=== PATIENT | female | born 1995 | race Caucasian/White ===

== ENCOUNTER 2017-07-12 08:54 | Day surgery (SDC) | payer OTHER ==
--- NOTE | 2017-07-08 08:40 | PDGENHP ---
History and Physical - Chief Complaint LEFT SCOPE - History of Present Illness 1. 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 Bilateral Femoroacetabular impingement (RICCO) Cam type, HISTORY OF PRESENT ILLNESS: Codyis a 21 y.o.~~~active female~who I have had the pleasure to consult on today.~I have enjoyed meeting her. She~lives in [place]. 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 ~She~is single; she~has no children. ~ Codyenjoys dancing and wants to be a professional dancer. Addis's bilateral~hip pain started in 2011, with no~recalled trauma or injury, and with no~previous complaints.~Codydoes not have~a known history of hip dysplasia. Presentation today is of~anterior, groin bilateral~hip pain(L>R). ~The hip does not~wake her~at night and does~click and catch on her. Sitting can be uncomfortable for her. Codydoes~report suffering from lower back pain episodes. Codyhas~participated in physical therapy and has~tried other conservative measures including massage therapy. She~has not~received sufficient symptomatic improvement. Codyhas not~utilized medication for pain management, including NSAID and OTC acetaminophen. Codyhas used medication for 3-4 years. Codyunderstands that she~has a hip and pelvis problem which should be researched and wishes to get a better understanding of her~hip status, followed by an establishment of a treatment strategy, hoping she~would be able to get back to her~well being active life. History: Past medical history: ~ None which is relevant Relevant familial history: None which is relevant Past surgical history: [place] tooth removal Codydenies problematic issues with general anesthesia in the past. I have reviewed, verified and agree with the past medical, surgical, family and social history. Current Medications:Jacklyncurrently has no medications in their medication list. ALLERGIES:Jacklynhas no allergies on file. Objective: Physical Examination: Codyis 5 feet 4~inches tall and weighs~113~Lbs. Codyis AAO x3; she~ is well-nourished, in NAD. Skin is warm and dry. ~Breathing is non-labored. ~CV with RRR by pulse. Abdomen is soft, NTND. Currently, she~walks with a normal~gait. Trendelenburg sign is negative and proprioception~is normal, both~sides. She~presents~with moderate~signs of joint laxity.~Beightons Score: 5 She~is fit looking. ~~ Lower spine examination is negative~for sciatic or femoral nerve irritation with negative~SLR &~femoral stretch tests. Range of motion of the spine is normal~for flexion, extension, and rotations, with no~associated pain. Strength, Sensation and pulses are normal - bilaterally Ankles and knees exams are normal~and no~mal-alignment is evident. She~has~0.5cm right short ~leg length discrepancy. Thigh circumference is symmetric with no evidence for muscle atrophy on both~ sides. Hip ROM (degrees): FL ER At 90~hip FL IR At 90~hip FL AB AD EX IR Neutral hip ER Neutral hip R 110 50 25 45 10 10 50 40 L 110 55 20 50 5 10 50 30 Specific hip and pelvis tests: Quadrant DANIA Roll Add. Longus R +++ +++ Negative + L +++ +++ Negative + Glut. Med ITB Pos. Imp R Negative 5/5 strength Negative 5/5 strength Negative L Negative 5/5 strength Negative 5/5 strength Negative Squeeze test measured normal Bony Symphysis pubis is pain free to touch while concentric activity of the rectus abdominis, does not~produce pain at its insertion. Ilio Psos specific tests are positive for pain during cycling for both hips~and remarkable for painful snap. HF has no pain on ~both hips. Anterior capsule tenderness on both sides. Greater trochanteric burse is pain free on both hips. Piriformis tests: FAIR is negative, with no local signs of neuritis related to sciatic nerve. SIJs examination is normal with normal~DANIA in relation and local tenderness. Hamstrings tests are negative~functional contraction and negative~tendinopathy both hips. On a daily basis, the following percentages reflect Addis's overall total pain: Deep hip: 100% Imaging: Radiology studies which I~have personally reviewed, analyzed and measured are below: XR: AP of the hip and pelvis: Performed in a good~technique Coccyx to pubic symphysis distance 2.5 cm. 0 degree upright. [place]~Lines are preserved. No Pathological signs are seen in the Symphysis Pubis. Minimal Pathological signs are seen at the Ischial~tuberosity. ~ Specific measurements show: NSA~ LCE Sourcil~Angle Sharp's angle Lat. Cam Lat. Pincer C.Over~sign Head~Coverage % ATDmm R N 19 12 45 + - 12-1 68 N L N 19 11 46 + - 12-1 68 N Pos. wall sign ISS NAD ~~Dysplasia Comments R Negative Negative 19.2 mm +++ L Negative Negative 16.2 mm +++ Sclerosis Sup. Lat. OA Cysts Joint Space-WBZ Joint Space-Medial R Negative Negative Negative 3.9 mm 3.3 mm L Negative Negative Negative 4 mm 3.2 mm X Table lateral: Anterior cam lesion is seen~on both hips. Alpha Angle: ~ Right 74 dergrees Left 68 degrees Impression and plan:~ Addis~is a 21 y.o.~active female~suffering from symptomatic bilateral hip pain due to Bilateral Hip Dyplasia with resultant labral tear (L >~R) and Bilateral Femoroacetabular impingement (RICCO) Cam type, causing significant disability to her~and altering~her~sport and life activities. Physical examination, imaging, and her~story correspond with the diagnosis mentioned above. I explained that hip dysplasia is a condition wherein the hip joint has excessive play~and instability due to a variety of factors, including the depth and adequacy of the socket, the orientation of the femur bone, and ligament laxity around the hip joint. Dysplasia ranges in severity from borderline to crow, with treatment options being specific to the specific nature of the problem. Left untreated, the instability in the hip joint can cause progressive tearing of the labrum and deterioration of the surface cartilage, ultimately resulting in progressive osteoarthritis of the hip. I explained that femoroacetabular impingement (RICCO - Cam type) arises due to a bony or soft tissue conflict between the femur (ball) and acetabulum (socket) caused by an abnormality in the shape of the femoral head and neck. Over time, repetitive impingement can result in damage to the labrum and adjacent surface cartilage within the socket, ultimately giving rise to progressive osteoarthritis of the hip. I explained that although a labral tear can be a source of pain, it is rarely the root of the problem and typically occurs secondary to an underlying abnormality in the shape and mechanics of the hip joint. I reviewed conservative treatment options for Dysplasia and RICCO including activity modification to avoid positions of impingement or instability, physical therapy, non-steroidal anti-inflammatory medications, and various injections (corticosteroid and PRP) aimed at reducing inflammation in the hip joint or/and preventing dynamic instability and impingement. PRP injections may promote healing and reduce symptoms in certain cases but it will not repair chronically damaged tissue. Although these measures may help to buy time~and reduce current level of symptoms, they are not a definitive solution to the problem given the underlying abnormality in the shape of the hip joint. Patients who have failed conservative management and continue to experience symptoms are candidates for definitive surgical treatment, which may consist of hip arthroscopy alone or in combination with more invasive bony realignment procedures of the hip socket and/or femur called periacetabular osteotomy (KEYON) or derotational femoral osteotomy (DFO). Hip arthroscopy typically includes treating the labrum with either repair or reconstruction of the torn labrum; as well as addressing the underlying abnormalities by restoring the normal shape to the hip joint. If the cartilage is damaged a Microfracture surgical procedure may also be necessary to help stimulate the growth of fibrocartilage. If a patient requires a labral reconstruction or a Microfracture, the initial rehabilitation from the surgery may take longer, but the intermediate project manager results are typically favorable. I reviewed the technical aspects of hip arthroscopy including risks, benefits, and expected course of recovery. Addis~understands that hip arthroscopy is a minimally invasive outpatient procedure carried out through small incisions on the outer aspect of the hip joint. During surgery, the labral tear will be identified and either repaired or reconstructed~using bone anchors and suture material. Additionally, any excessive bone will be removed with a high-speed paolo to reshape the hip joint and restore normal anatomy. Risks include infection, bleeding, injury to nearby nerves or vessels, stiffness, persistent pain, instability, venous thromboembolic disease, and traction related complications including temporary foot numbness. Rarely, revision surgery may be required to address these problems. Overall recovery takes approximately 4~~ 8~months depending on the extent of damage and degree of repair. In the event that the labral tissue quality is inadequate for successful repair and healing, Addis~understands that a labral reconstruction will be performed. This procedure entails placing a cadaver tissue graft within the hip joint and stabilizing it with bone anchors to build a new labrum. The overall recovery time for labral reconstruction is similar to that of labral repair, although the surgical procedure takes longer to perform. I reviewed the technical aspects of periacetabular osteotomy (KEYON) including risks, benefits, and expected course of recovery. Codyunderstands that KEYON is an inpatient procedure carried out through two medium sized incisions on the front and back of the hip joint. The hip socket is cut, realigned, and stabilized with 2 ~3 internal screws. Risks include infection, bleeding, injury to nearby nerves or vessels, stiffness, persistent pain, instability, failure of bony healing, implant related complications, and venous thromboembolic disease. Rarely, revision surgery may be required to address these problems. Risks, potential complications, side effects and recovery from surgical procedure were discussed in length. We explained how this surgery is an open procedure, and though patients tend to do well in the long-term, it involves significant pain in the first 2-4 weeks post-op and a rather lengthy rehab.~Overall recovery takes approximately 6 ~12~months depending on the extent of damage and degree of repair. Codyunderstands that she~will undergo hip arthroscopy 1 week prior to the KEYON to address damage inside the hip joint. Codyunderstands that hip arthroscopy and KEYON are two separate procedures that are best performed one week apart, with the arthroscopy commencing first to "tighten up" any pathology evident in the hip joint (labral repair, etc.) and the KEYON open procedure occurring 7-10 days later to realign the acetabulum. Codywill review the info presented. In order to obtain more detailed information regarding the alignment, orientation, and shape of the bony hip and pelvis I will order a CT scan to be performed. The results of the CT scan, including femoral torsion and acetabular version measured values and 3D images, will aid me in deciding on the best treatment strategy and surgical pre-planning. She has had MRI in the past and she is going to bring them to us. Codyis going to contact us after completing her~imaging studies. Codyis happy with this plan. I have also supplied her~with handouts, outlining the expected surgical treatment and rehab involved. I wish~Addis~all the best, ~~ Laureen Fisher MD History Information - Allergies/Home Medication List Allergies/Adverse Reactions: resveratrol [grapes] Allergy (Verified 06/10/17 14:27) ORAL ITCHING Home Medications: Birthcontrol DAILY 06/10/17 [Last Taken Unknown] Herbal Drugs 06/10/17 [Last Taken Unknown] Prozac 40 mg HS 06/10/17 [Last Taken Unknown] I have personally reviewed and updated: medical history - Social History Smoking Status: Never smoked
[2017-07-12] MEDS ORDERED: LR 1,000 ML IV ONE (09:21)
[2017-07-12] MEDS ORDERED: BUPIVACAINE/EPI 0.25% 30 ML SDV ONE (10:15)
[2017-07-12] MEDS ORDERED: ACETAMINOPHEN 500 MG TAB PO ONE (12:01)
[2017-07-12] MEDS ORDERED: PREGABALIN 150 MG CAP PO ONE (12:01)
[2017-07-12] MEDS ORDERED: ceFAZolin 2 GM/DEXTROSE 100 ML IV ONE (12:01)
[2017-07-12] MEDS ORDERED: ACETAMINOPHEN 500 MG TAB ONE (12:10)
[2017-07-12] MEDS ORDERED: MIDAZOLAM 2 MG/2 ML VIAL IVP ONE (12:25)
[2017-07-12] MEDS ORDERED: SCOPOLAMINE HYDROBROMIDE 1.5 MG PATCH TD ONE (12:25)
--- NOTE | 2017-07-12 12:27 | PDANEPAE ---
ANE History of Present Illness Patient presents for surgery ANE Past Medical History - Cardiovascular History Hx Hypertension: No Hx Arrhythmias: No Hx Chest Pain: No Hx Coronary Artery / Peripheral Vascular Disease: No Hx CHF / Valvular Disease: No Hx Palpitations: No - Pulmonary History Hx COPD: No Hx Asthma/Reactive Airway Disease: No Hx Recent Upper Respiratory Infection: No Hx Oxygen in Use at Home: No Hx Sleep Apnea: No Sleep Apnea Screening Result - Last Documented: Negative - Neurologic History Hx Cerebrovascular Accident: No Hx Seizures: No Hx Dementia: No - Endocrine History Hx Diabetes: No - Renal History Hx Renal Disorders: No - Liver History Hx Hepatic Disorders: No - Neurological & Psychiatric Hx Hx Neurological and Psychiatric Disorders: No - Cancer History Hx Cancer: No - Congenital Disorder History Hx Congenital Disorders: No - GI History Hx Gastrointestinal Disorders: No - Other Health History Other Health History: ACNE. SENSITIVE TO MEDICATIONS - Chronic Pain History Chronic Pain: Yes (LT HIP) - Surgical History Prior Surgeries: LT HIP SCOPE 07/12/2017. TONSILLECTOMY ANE Review of Systems - Exercise capacity Exercise capacity: >=4 METS METS (RN): 4 METS ANE Patient History - Allergies Allergies/Adverse Reactions: adhesive Allergy (Mild, Verified 07/12/17 10:25) Rash resveratrol [grapes] Allergy (Verified 06/10/17 14:27) ORAL ITCHING - Home Medications Home medications: home medication list seen and reviewed Home Medications: Birthcontrol DAILY 06/10/17 [Last Taken 07/07/17] Herbal Drugs 06/10/17 [Last Taken 07/11/17] Prozac 40 mg HS 06/10/17 [Last Taken 07/11/17] VITAMIN D 07/12/17 [Last Taken 07/11/17] - NPO status NPO Status: no food or drink >8 hours NPO Since - Liquids (Date): 07/11/17 NPO Since - Liquids (Time): 23:30 NPO Since - Solids (Date): 07/11/17 NPO Since - Solids (Time): 21:00 - Anes Hx Anes Hx: no prior problems - Smoking Hx Smoking Status: Never smoked ANE Labs/Vital Signs - Vital Signs Vital Signs: reviewed preoperatively; see RN documention for details Blood Pressure: 103/63 Heart Rate: 63 Respiratory Rate: 13 O2 Sat (%): 97 Height: 162.56 cm Weight: 52.163 kg ANE Physical Exam - Airway Neck exam: FROM Mallampati Score: Class 1 Mouth exam: normal dental/mouth exam - Pulmonary Pulmonary: no respiratory distress - Cardiovascular Cardiovascular: regular rate and rhythym - ASA Status ASA Status: I ANE Anesthesia Plan Anesthesia Plan: general endotracheal anesthesia (RBA discussed)
[2017-07-12] MEDS ORDERED: PROPOFOL 200 MG/20 ML VIAL ONE (12:29)
[2017-07-12] MEDS ORDERED: fentaNYL 100 MCG/2 ML INJ ONE ×3 (12:29→16:13)
[2017-07-12] MEDS ORDERED: PROPOFOL/EMULSION 500 MG/50 ML BOTTLE IV ONE (12:29)
[2017-07-12] MEDS ORDERED: ROCURONIUM 50 MG/5 ML VIAL ONE ×2 (12:30→14:14)
[2017-07-12] MEDS ORDERED: LIDOCAINE 2% 5 ML SDV ONE (12:30)
[2017-07-12] MEDS ORDERED: DEXAMETHASONE 4 MG/ML VIAL ONE (12:30)
[2017-07-12] MEDS ORDERED: SUGAMMADEX SODIUM 200 MG/2 ML VIAL IVP ONE (14:39)
[2017-07-12] MEDS ORDERED: ONDANSETRON 4 MG/2 ML VIAL ONE (14:39)
[2017-07-12] MEDS ORDERED: ONDANSETRON 4 MG/2 ML VIAL IVP PRN (14:49)
[2017-07-12] MEDS ORDERED: OXYCODONE/APAP 5/325 TAB PO PRN (14:49)
[2017-07-12] MEDS ORDERED: HYDROCODONE/APAP 5/325 TAB PO PRN (14:49)
[2017-07-12] MEDS ORDERED: LR 500 ML IV PRN (14:49)
[2017-07-12] MEDS ORDERED: NALOXONE HCL 0.4 MG/ML INJ IVP PRN (14:49)
[2017-07-12] MEDS ORDERED: HYDROmorphONE/DILAUDID 1 MG/ML SYR IVP PRN (14:49)
[2017-07-12] MEDS ORDERED: PHENYLEPHRINE HCL 100 MCG/ML SYR ONE (15:27)
[2017-07-12] MEDS ORDERED: GLYCOPYRROLATE 0.2 MG/1 ML VIAL ONE ×3 (15:28→15:29)
[2017-07-12] MEDS ORDERED: KETOROLAC 30 MG/1 ML SDV ONE (15:36)
[2017-07-12] MEDS: fentaNYL 100 MCG/2 ML INJ IVP PRN ×3 (16:14→16:58)
[2017-07-12 17:29] VITALS: TEMP 98.4
[2017-07-12] MEDS ORDERED: OXYCODONE/APAP 5/325 TAB ONE (17:30)
[2017-07-12 18:38] VITALS: BP 100/60; PULSE 78; RESP 14; O2SAT 95
--- NOTE | 2017-07-12 22:00 | POSTANESTH ---
Post Anesthetic Evaluation Cardiovascular Status: Normal, Stable Respiratory Status: Normal, Stable Level of Consciousness/Mental Status: Can Participate in Eval Pain Control: Adequate, Prn Tx Ordered, Inadeq, Add Tx Required Nausea/Vomiting Control: Adequate, Prn Tx Ordered Complications Possibly Related to Anesthesia: None Noted
== END 2017-07-12 18:50 | disposition home or self-care (01) ==
LOC: FSGY 08:54
PROVIDERS: ATTEND Orthopaedic Surgery Sports Medicine
PROC: 0SQ94ZZ Repair Right Hip Joint, Percutaneous Endoscopic Approach (ICD-10-PCS; principal; 2017-07-12 10:30)
DX: M25.851 Other specified joint disorders, right hip (principal); M25.812 Other specified joint disorders, left shoulder
CPT/HCPCS: J0171; J0690; J1100; J1885; J2250; J2370; J2405; J2704; J3010